=== PATIENT | female | born 1940 | race Hispanic/Latino ===

== ENCOUNTER 2016-08-09 12:52 | Outpatient (CLI) | payer MEDICARE ==
--- NOTE | 2016-08-09 15:52 | Mammography Report ---
BONE DEXA:08/09/16 12:52:00 CLINICAL: Postmenopausal. No comparison. TECHNIQUE: Two site bone DEXA performed on an Hologic scanner. FINDINGS: The average BMD of the lumbar spine L1-L4 is 0.853g/cm squared with a T-score of -1.8 and a Z-score of 0.8. The average BMD of the left hip is 0.753g/cm squared with a T-score of -1.5 and a Z-score of +0.4. IMPRESSION: WHO classification: Osteopenia with increased fracture risk based on both spine and left hip measurements. RECOMMENDATION: Clinical correlation and routine screening. DEFINITIONS: BMD = Bone Mineral Density T-score = BMD related to mean peak bone mass of young adult (mean expressed in Standard Deviation) Z-score = Age matched BMD expressed in SD World Health Organization (WHO) Diagnostic Criteria Normal T-score > -1 SD Osteopenia T-score between -1 and -2.4 SD Osteoporosis T-score -2.5 SD or below NOTE: BMD is not the only risk factor for fracture. One should also consider factors such as the patient's age, risk of falling, previous osteoporotic fracture, family history of osteoporotic fractures, current smoker, and low body weight. Z-scores are not calculated if >80 years of age.
--- NOTE | 2016-08-09 16:39 | Mammography Report ---
BILATERAL DIGITAL SCREENING MAMMOGRAM with CAD : 08/09/16 12:52:00 CLINICAL: Routine screening. COMPARISON:08/09/16 FINDINGS: The breasts are heterogeneously dense, which may obscure small masses. No mass, architectural distortion or suspicious calcifications. IMPRESSION: No mammographic evidence of malignancy. BI-RADS CATEGORY: 2 -- Benign RECOMMENDATION: Routine mammographic screening in one year. COMMENT: Patient follow-up letters are generated by our [employer] application.
== END 2016-08-09 12:53 | disposition home or self-care (01) ==
LOC: SPVWC 12:52
PROVIDERS: ATTEND Physician Assistant
DX: Z12.31 Encounter for screening mammogram for malignant neoplasm of breast (principal); M85.88 Other specified disorders of bone density and structure, other site
CPT/HCPCS: 77080; G0202; 77067

== ENCOUNTER 2017-08-11 10:37 | Outpatient (CLI) | payer MEDICARE ==
--- NOTE | 2017-08-11 15:16 | Mammography Report ---
BILATERAL DIGITAL SCREENING MAMMOGRAM with CAD: 08/11/17 10:37:00 CLINICAL: Routine screening. COMPARISON:08/09/16 and annual mammograms going back to 2008. FINDINGS: The breasts are mostly fatty with a few bilateral residual retroareolar and upper-outer fibroglandular densities. A left upper outer focal asymmetry acquired additional imaging.No architectural distortion or suspicious calcifications.The right breast is negative. IMPRESSION: Left focal asymmetry requiring further workup. BI-RADS CATEGORY: 0 -- Additional Imaging Evaluation Required RECOMMENDATION: Recall for left mediolateral , spot compression CC and MLO views and left breast ultrasound if needed. ACR BI-RADS MAMMOGRAPHIC CODES: 0 = Needs additional imaging evaluation; 1 = Negative; 2 = Benign; 3 = Probably benign; 4 = Suspicious; 5 = Malignant; 6 = Known biopsy-proven malignancy COMMENT: 1. Dense breast tissue, i.e., adenosis, fibrocystic changes, etc., may obscure an underlying neoplasm. 2. Approximately 10% of cancers are not detected with mammography. 3. A negative mammography report should not delay biopsy if a clinically suspicious mass is present. COMMENT: Patient follow-up letters are generated via our [employer] application.
== END 2017-08-11 10:38 | disposition home or self-care (01) ==
LOC: SPVWC 10:37
PROVIDERS: ATTEND Family Medicine
DX: Z12.31 Encounter for screening mammogram for malignant neoplasm of breast (principal)
CPT/HCPCS: 77067

== ENCOUNTER 2017-09-01 08:50 | Outpatient (CLI) | payer MEDICARE ==
--- NOTE | 2017-09-01 10:07 | Mammography Report ---
LEFT DIGITAL DIAGNOSTIC MAMMOGRAM and LEFT BREAST ULTRASOUND: 09/01/17 08:50:00 CLINICAL: Recalled for asymmetry. COMPARISON:08/11/17 screening FINDINGS: ML, rolled CC and MLO and CC spot compression views were performed. A poorly marginated low density outer focal asymmetry persists on all views. Ultrasound of the upper outer left breast was performed and demonstrated an oval isoechoic relatively smooth lesion at 2 o'clock 5 cm from the nipple. It measures 8 x 6 x 4 mm and correlates with the mammographic asymmetry. It demonstrates posterior enhancement and has relatively homogeneous echoes. IMPRESSION: Complex cyst versus solid mass at 2 o'clock 5 cm from the nipple. Recommend ultrasound guided needle aspiration and needle biopsy if it is determined to be a solid lesion with an unsuccessful aspiration. BI-RADS CATEGORY: 4A -- Mildly Suspicious I discussed the findings and the recommendation for needle aspiration/biopsy with the patient at the time of the examination. ACR BI-RADS MAMMOGRAPHIC CODES: 0 = Needs additional imaging evaluation; 1 = Negative; 2 = Benign; 3 = Probably benign; 4 = Suspicious; 5 = Malignant; 6 = Known biopsy-proven malignancy COMMENT: 1. Dense breast tissue, i.e., adenosis, fibrocystic changes, etc., may obscure an underlying neoplasm. 2. Approximately 10% of cancers are not detected with mammography. 3. A negative mammography report should not delay biopsy if a clinically suspicious mass is present. COMMENT: Patient follow-up letters are generated via our [email or web address] application.
== END 2017-09-01 08:51 | disposition home or self-care (01) ==
LOC: SPVWC 08:50
PROVIDERS: ATTEND Family Medicine
DX: N64.89 Other specified disorders of breast (principal)

== ENCOUNTER 2017-09-08 08:48 | Outpatient (CLI) | payer MEDICARE ==
--- NOTE | 2017-09-08 10:49 | Mammography Report ---
LEFT DIGITAL DIAGNOSTIC MAMMOGRAM: 09/08/17 08:48:00 CLINICAL: For clip placement immediately status post ultrasound biopsy. COMPARISON: FINDINGS: A biopsy clip is now identified at the previously identified focal asymmetry. IMPRESSION: Concordant clip placement status post ultrasound biopsy. BI-RADS CATEGORY: 4--Suspicious Pathology pending.
--- NOTE | 2017-09-08 11:52 | Ultrasound Report ---
ULTRASOUND GUIDED NEEDLE CORE BIOPSY LEFT BREAST WITH CLIP PLACEMENT: 09/08/17 CLINICAL: Left breast mass at 2 o'clock 5 cm from the nipple. COMPARISON :09/01/17 FINDINGS: The procedure was explained to the patient and informed consent was obtained. Ultrasound demonstrated the previously described lesion. I decided not to attempt to aspirate the lesion. The left breast was marked with a felt tip marker and a time out was called. The skin was prepped with Betadine and anesthetized with 1% lidocaine. Needle core biopsy was performed through a tiny dermatotomy using ultrasound guidance, 2% lidocaine with epinephrine for deep anesthesia and a 14-gauge Achieve biopsy device. 3 cores were obtained and placed in formalin. A clip was deployed within the lesion. The patient tolerated the procedure well and there were no apparent complications. Hemostasis was achieved with minimal pressure and a sterile dressing was applied. A two view mammogram demonstrated concordant clip deployment at the previously identified mammographic asymmetry. She left the department in good condition and was given instructions for wound care and followup. IMPRESSION: Uncomplicated ultrasound guided needle core biopsy with clip placement left breast.
== END 2017-09-08 08:49 | disposition home or self-care (01) ==
LOC: SPVWC 08:48
PROVIDERS: ATTEND Family Medicine
DX: C50.412 Malignant neoplasm of upper-outer quadrant of left female breast (principal); R92.8 Other abnormal and inconclusive findings on diagnostic imaging of breast; N64.89 Other specified disorders of breast; Z17.0 Estrogen receptor positive status [ER+]
CPT/HCPCS: 88305; 88341; 88342; 88361